=== PATIENT | male | born 1990 | race Two or more races ===

== ENCOUNTER → 2021-03-12 | Outpatient (CLI) | payer OTHER | LOC: NM 13:18 | PROVIDERS: ATTEND Internal Medicine Gastroenterology | DX: R10.11 Right upper quadrant pain (principal); Z87.19 Personal history of other diseases of the digestive system | CPT/HCPCS: 78227; A9537 ==

== ENCOUNTER → 2021-03-28 | Outpatient (CLI) | payer OTHER ==
[~2021-03-28] MED LIST: IOPAMIDOL 370 MG/ML 200 ML INFUS..BTL INJ ONE; SODIUM CHLORIDE 0.9% 50ML 50 ML ONE
== END ==
LOC: CT 17:25
PROVIDERS: ATTEND Internal Medicine Gastroenterology
DX: R10.11 Right upper quadrant pain (principal); R14.0 Abdominal distension (gaseous); Z86.19 Personal history of other infectious and parasitic diseases
CPT/HCPCS: 74177; Q9967

== ENCOUNTER → 2021-05-07 | Outpatient (CLI) | payer OTHER | LOC: US 09:24 | PROVIDERS: ATTEND Surgery | DX: R10.11 Right upper quadrant pain (principal); R07.81 Pleurodynia | CPT/HCPCS: 71101; 72070; 76705 ==